=== PATIENT | male | born 1955 | race Caucasian/White ===

== ENCOUNTER 2017-03-31 18:04 | Emergency (ER) | payer MEDICAID ==
[~2017-03-31] VITALS: Ht 165.1 cm; Wt 68.0 kg
[2017-03-31 18:53] LABS: Basophils # (auto) 0.1 uL; Basophils % (auto) 1.5 % (0.0-2.0); CONDITION Y; Eosinophils # (auto) 0.2 uL; Eosinophils % (auto) 2.8 % (0.0-7.0); Hematocrit 41.1 % (41.0-53.0); Hemoglobin 13.7 g/dL (13.5-17.5); Lymphocytes # (auto) 2.4 uL; Lymphocytes % (auto) 39.8 % (10.0-50.0); Mean Corpuscular Hgb Conc. 33.3 g/dL (32.0-36.0); Mean Corpuscular Volume 92.9 fL (80.0-100.0); Mean Platelet Volume 8.6 fL (7.4-10.4); Monocytes # (auto) 0.6 uL; Monocytes % (auto) 9.5 % (0.0-12.0); Neutrophils # (auto) 2.8 uL; Neutrophils % (auto) 46.4 % (37.0-80.0); Platelet Count (auto) 251 10^3/uL (140-450); White Blood Cell 6.1 10^3/uL (4.4-10.8)
[2017-03-31] MEDS ORDERED: GABA-497 PO (18:58)
[2017-03-31] MEDS ORDERED: CLOP75TA28 PO (18:58)
[2017-03-31] MEDS ORDERED: ASPI81CH43 PO (18:58)
[2017-03-31] MEDS ORDERED: IBU600T PO (18:58)
[2017-03-31] MEDS ORDERED: ISOS1TAB37 PO (18:58)
[2017-03-31] MEDS ORDERED: CLON0.1T PO (18:58)
[2017-03-31] MEDS ORDERED: ALPR0.5T PO (18:58)
[2017-03-31] MEDS ORDERED: SIMV10TA73 PO (19:00)
[2017-03-31] MEDS ORDERED: AML5T PO (19:00)
[2017-03-31 19:17] LABS: Anion Gap 10 (5-15); Blood Urea Nitrogen 10 mg/dL (7-18); Calcium 8.2 mg/dL (8.5-10.1); Carbon Dioxide 23 mmol/L (21-32); Chloride 107 mmol/L (98-107); Glucose 154 mg/dL (74-106); Potassium 3.6 mmol/L (3.5-5.1); Sodium 140 mmol/L (136-145)
[2017-03-31 19:20] LABS: Albumin 3.3 g/dL (3.4-5.0); BUN/Creatinine Ratio 9.5; GFR African American 92 mL/min; GFR Non-African American 76 mL/min
[2017-03-31 19:25] LABS: Alkaline Phosphatase 112 U/L (45-117); Aspartate Aminotransferase 138 U/L (15-37); Bilirubin, Total 0.8 mg/dL (0.2-1.0)
[2017-03-31] MEDS ORDERED: ONDANSETRON HCL 4 MG/2 ML VIAL IV ONE (19:30)
[2017-03-31] MEDS ORDERED: MORPHINE SULFATE 4 MG/ML SYRG IV ONE (19:30)
[2017-03-31 20:13] LABS: INR 0.99 (0.9-1.15); Partial Thromboplastin Time 28.4 sec (22.64-33.71); Prothrombin Time 10.8 sec (9.37-12.3)
[2017-03-31 20:16] LABS: B-Type Natriuretic Peptide 8.75 pg/mL (0-100)
[2017-03-31 20:18] LABS: Temperature: 23.3 C (20.0-25.0)
[2017-03-31 20:30] VITALS: BP 128/68
[2017-03-31] MEDS ORDERED: SODIUM CHLORIDE 0.9% 1,000 ML IV ONE (22:00)
== END 2017-03-31 21:39 | disposition left against medical advice (07) ==
LOC: ER 18:08
DX: R07.1 Chest pain on breathing (principal); I25.2 Old myocardial infarction; E78.5 Hyperlipidemia, unspecified; I10 Essential (primary) hypertension; F17.210 Nicotine dependence, cigarettes, uncomplicated; Z79.01 Long term (current) use of anticoagulants; Z79.82 Long term (current) use of aspirin; Z98.61 Coronary angioplasty status; Z79.899 Other long term (current) drug therapy; Z95.1 Presence of aortocoronary bypass graft
CPT/HCPCS: 36415; 71010; 80053; 83735; 83880; 84443; 84484; 85025; 85379; 85610; 85730; 93005; 96374; 96375; 99285; J2270; J2405